=== PATIENT | female | born 1960 | race Asian ===

== ENCOUNTER 2018-01-17 22:11 | Emergency (ER) | payer BC ==
[~2018-01-17] VITALS: Ht 162.6 cm; Wt 65.8 kg
[2018-01-17 22:25] VITALS: Ht 162.6 cm; Wt 65.8 kg
[2018-01-17 23:24] LABS: BASOPHIL % 0.4 % (0-2); PLATELET COUNT 309 x10^3mcL (130-400); RED CELL DISTRIBUTION WIDTH 14.5 % (11.5-14.5)
[2018-01-17 23:36] LABS: CALCIUM 8.6 mg/dL (8.5-10.1); CARBON DIOXIDE 21.6 mmol/L (21-32); CREATININE SERUM 1.1 mg/dL (0.6-1.0)
[2018-01-17 23:40] LABS: ALBUMIN 4.4 g/dL (3.4-5.0); BILIRUBIN TOTAL 0.2 mg/dL (0.20-1.00)
[2018-01-17 23:41] LABS: TOTAL PROTEIN, SERUM 8.3 g/dL (6.4-8.2)
[2018-01-18 04:48] VITALS: BP 126/80
[2018-01-18 06:52] LABS: microscopic required? YES; urine erythrocyte TRACE (NEGATIVE)
== END 2018-01-18 04:55 | disposition home or self-care (01) ==
LOC: ED 22:11
PROVIDERS: Emergency Medicine
DX: K59.00 Constipation, unspecified (principal); F10.129 Alcohol abuse with intoxication, unspecified; I10 Essential (primary) hypertension; E78.00 Pure hypercholesterolemia, unspecified; Z91.013 Allergy to seafood; Z91.010 Allergy to peanuts
CPT/HCPCS: G0480; J2270; J2405; J3411; J3475; J3490; J7030